=== PATIENT | female | born 1970 | race Two or more races ===

== ENCOUNTER 2024-01-20 17:15 | Emergency (ER) | payer OTHER ==
[2024-01-20] MEDS ORDERED: IBUPROFEN 400 MG TABLET (FP) PO ONE (17:57)
[2024-01-20] MEDS: IBUPROFEN 400 MG TABLET (FP) PO ONE (17:58)
[2024-01-20 18:06] VITALS: BP 140/81; PULSE 76; RESP 20; TEMP 98.1; BMI 33.3
== END 2024-01-20 18:58 | disposition home or self-care (01) ==
LOC: FER 17:15
DX: S93.402A Sprain of unspecified ligament of left ankle, initial encounter (principal); X58.XXXA Exposure to other specified factors, initial encounter
CPT/HCPCS: 73610-TC-LT-FY; 73630-TC-LT; 99283-25